=== PATIENT | male | born 1995 | race Caucasian/White ===

== ENCOUNTER 2024-03-02 12:49 | Emergency (ER) | payer OTHER ==
[~2024-03-02] VITALS: Ht 175.3 cm; Wt 90.7 kg
[2024-03-02 13:00] VITALS: BP 127/99; PULSE 65; RESP 20; TEMP 98; O2SAT 98
[2024-03-02] MEDS ORDERED: ACET-10509 PO (16:55)
[2024-03-02 17:01] VITALS: BP 125/80; PULSE 64; RESP 16; TEMP 36.66960; O2SAT 98
== END 2024-03-02 17:01 | disposition home or self-care (01) ==
LOC: MED 12:49
DX: S00.03XA Contusion of scalp, initial encounter (principal); V89.2XXA Person injured in unspecified motor-vehicle accident, traffic, initial encounter; Y93.89 Activity, other specified; Y92.89 Other specified places as the place of occurrence of the external cause; Y99.8 Other external cause status
CPT/HCPCS: 70450; 99284